=== PATIENT | male | born 1955 | race Caucasian/White ===

== ENCOUNTER 2020-07-27 05:37 | Emergency (ER) | payer BC ==
[2020-07-27] MEDS ORDERED: HYDROcodone/Acetaminophen 10/325 mg Tablet ONE (06:04)
[2020-07-27] MEDS ORDERED: Cyclobenzaprine 10 MG TAB ONE ×2 (06:05→08:05)
[2020-07-27] MEDS ORDERED: Sterile Water 0 ML ONE ×2 (06:06→06:08)
[2020-07-27] MEDS ORDERED: Ketorolac Tromethamine 30 MG/ML VIAL ONE (07:32)
== END 2020-07-27 08:20 | disposition home or self-care (01) ==
LOC: MADERS 05:37
DX: M43.6 Torticollis (principal); N40.0 Benign prostatic hyperplasia without lower urinary tract symptoms; E78.5 Hyperlipidemia, unspecified; E78.00 Pure hypercholesterolemia, unspecified; M19.90 Unspecified osteoarthritis, unspecified site; Z79.899 Other long term (current) drug therapy
CPT/HCPCS: 96372; 99283; J1040; J1885